=== PATIENT | female | born 1975 | race Caucasian/White ===

== ENCOUNTER 2021-04-28 10:19 | Day surgery (SDC) | payer OTHER ==
--- NOTE | 2021-04-28 08:34 | HP ---
DATE OF SURGERY: 04/28/2021 HISTORY OF PRESENT ILLNESS: The patient is a 46-year-old who for a while since December or January some belching, reflux, upper abdominal pain radiating into the right back area. No vomiting. Worse with fried foods. She has some loose stools at times. No abdominal surgeries. She had some gallbladder sludge on ultrasound, low ejection fraction of 32% consistent with chronic cholecystitis. PAST MEDICAL HISTORY: Reflux. PAST SURGICAL HISTORY: Breast augmentation in the past. EGD. Colonoscopy. Uterine ablation in the past. MEDICATIONS: Zyrtec, Protonix, Flonase. ALLERGIES: NKDA. FAMILY HISTORY: Hypertension. Kidney disease. Diabetes. Heart disease. SOCIAL HISTORY: No smoking or alcohol abuse. REVIEW OF SYSTEMS: Fourteen systems reviewed. No chest pain or palpitations. Other systems negative or noncontributory as above and per preadmission questionnaire. PHYSICAL EXAMINATION: GENERAL: No acute distress. HEENT: Sclerae nonicteric. NECK: No JVD. CHEST: Equal excursion, nonlabored breathing. CVS: Regular rate and rhythm. ABDOMEN: Soft. No peritoneal signs. She had some mild tenderness right upper quadrant/epigastrium. EXTREMITIES: No significant edema. NEURO: Alert, oriented, moving extremities symmetrically. RECTAL: Deferred timed to endoscopy exam. PSYCH: Appropriate mood and affect. IMPRESSION: Acute exacerbation of chronic cholecystitis, symptomatic biliary dyskinesia, biliary sludge. I feel the patient will benefit from cholecystectomy. She was shown the risk sheet, explained the procedure in detail including but not limited to bleeding or infection, risk of trocar injury or hernia, risk of bowel leak, bile duct injury, retained stone or sludge possibly requiring further procedure either open or ERCP, general risk of anesthesia, deep venous thrombosis, pulmonary embolism, pneumonia, perioperative risk of aches, pains, bloating, constipation and/or loose stools possibly even chronic in nature. She understands and agrees to the planned procedure, will proceed with laparoscopic cholecystectomy with possible open.
[~2021-04-28 10:19] MED LIST: Lactated Ringers 1,000 ML IV ONE; MEFOXIN 2 GM PREMIX** 2 GM/50 ML ML IV SCH; Sensorcaine 0.25% 10 ML ONE
[2021-04-28] MEDS ORDERED: Lactated Ringers 1,000 ML IV ONE ×2 (10:43→13:56)
[2021-04-28] MEDS ORDERED: MEFOXIN 2 GM PREMIX** 2 GM/50 ML ML IV ONE (10:43)
[2021-04-28] MEDS: Lactated Ringers 1,000 ML IV SCH ×3 (10:44→14:00)
[2021-04-28] MEDS ORDERED: DIPRIVAN 200 MG/20 ML IV ONE (11:46)
[2021-04-28] MEDS ORDERED: Zemuron 100 MG/10 ML ONE (11:46)
[2021-04-28] MEDS ORDERED: BRIDION 200MG/2ML IV ONE (11:46)
[2021-04-28] MEDS ORDERED: Zofran 4 MG/2 ML VIAL ONE (11:46)
[2021-04-28] MEDS ORDERED: Xylocaine-Mpf 2% 5 Ml Vial ONE (11:46)
[2021-04-28] MEDS ORDERED: Decadron 4 MG INJ ONE (11:46)
[2021-04-28] MEDS ORDERED: TORAdol 30 mg Injection ONE (11:46)
[2021-04-28] MEDS ORDERED: SUBLIMAZE 100 MCG/2 ML ONE ×2 (11:46→12:35)
[2021-04-28] MEDS ORDERED: BENADRYL 50 MG/ML ONE (11:58)
[2021-04-28] MEDS ORDERED: Compazine 10 MG/2 ML ONE (12:35)
[2021-04-28] MEDS ORDERED: Hydromorphone 1 mg/ml Injection ONE (12:36)
[2021-04-28] MEDS ORDERED: MORPHINE SULFATE 4 MG INJ IV PRN (13:10)
[2021-04-28] MEDS ORDERED: NORCO 5/325 MG PO PRN (13:11)
[2021-04-28] MEDS ORDERED: Zofran 4 MG/2 ML VIAL IV PRN (13:20)
[2021-04-28] MEDS ORDERED: Transderm Scop 1.5MG Patch TOP ONE (13:44)
[2021-04-28] MEDS ORDERED: SUBLIMAZE 100 MCG/2 ML IV PRN (13:55)
[2021-04-28] MEDS ORDERED: Lactated Ringers 1,000 ML IV SCH (14:00)
[2021-04-28 15:15] VITALS: BP 122/62; PULSE 88; O2SAT 97
--- NOTE | 2021-04-29 08:36 | OP ---
SURGERY DATE/TIME: 04/28/2021 1146 PREOPERATIVE DIAGNOSIS: Acute exacerbation of chronic cholecystitis, symptomatic biliary dyskinesia. POSTOPERATIVE DIAGNOSIS: Acute exacerbation of chronic cholecystitis, symptomatic biliary dyskinesia. PROCEDURE: Laparoscopic cholecystectomy. SURGEON: Dr. Darren Durham. ANESTHESIA: General. ESTIMATED BLOOD LOSS: Minimal. INDICATIONS: As noted above. Risks and benefits explained in detail but not limited to and consent obtained. DESCRIPTION OF PROCEDURE AND FINDINGS: The patient was taken to the operating room. General anesthesia induced. Abdomen prepped and draped in usual sterile fashion. After official time out and no disagreement with planned procedure, a transverse incision made at the supraumbilical area. Fascia grasped and pulled upward. Veress needle inserted and tested with saline. Pneumoperitoneum accomplished insufflating opening pressure of 0-15. An 11 mm bladeless port and camera inserted without difficulty followed by two - 5 mm right upper quadrant ports and 5 mm epigastric port. The gallbladder grasped. It had extensive omental adhesions out laterally and these were carefully freed allowing the gallbladder to be lifted upwards. Dissection carried posterior, lateral to anterior fashion. Slowly and carefully the main cystic artery isolated until critical view obtained anteriorly and posteriorly. Once this is accomplished, cystic duct and cystic artery clipped x3 and divided in the usual fashion well away from the visible liver bed. Gallbladder slowly and carefully dissected free from the liver bed. There is a little bit vasculature requiring clipping additional oozing side branches off the cystic vein directly on the gallbladder wall as necessary. Just prior to releasing from final attachments to the anterior edge of the liver, the liver bed re-inspected. Clips noted in place in cystic duct and cystic artery stumps. No signs of any active bleeding or bile leakage. It was felt there is no benefit from drain placement. Gallbladder released from final attachments to anterior edge of the liver, pulled up and out the supraumbilical port site and passed off. The fascial defect closed with puncture closure device with #1 Vicryl under direct vision of the camera. Liver bed re-inspected one last time. Irrigation irrigating clear. Clips noted in place in cystic duct and cystic artery stumps. No signs of any active bleeding or bile leakage. It was felt there was no need for drain placement. Pneumoperitoneum decompressed. The wound irrigated out. Skin incision closed with 4-0 Vicryl. Steri-Strips and sterile dressing applied. The patient tolerated the procedure well. There were no immediate complications. Findings discussed with the family out in the waiting area.
== END 2021-04-28 15:30 | disposition home or self-care (01) ==
LOC: SDC 10:19
PROVIDERS: ATTEND Surgery
DX: K81.0 Acute cholecystitis (principal); K82.8 Other specified diseases of gallbladder; Z79.899 Other long term (current) drug therapy
CPT/HCPCS: 84703; J0694; J1100; J1170; J1200; J1885; J2270; J2405; J2704; J3010; A9270-GY